=== PATIENT | female | born 1995 | race American Indian/Alaskan Native ===

== ENCOUNTER 2018-05-05 20:02 | Emergency (ER) | payer OTHER ==
[2018-05-05 20:19] VITALS: BP 115/72
[2018-05-05 20:49] LABS: Basophils # (Auto) 0.1 K/mm3 (0.0-0.1); Basophils % (Auto) 0.4 % (0.0-1.8); Eosinophils # (Auto) 0.2 K/mm3 (0.0-0.4); Hematocrit 35.6 % (30.3-42.9); Hemoglobin 12.5 gm/dl (10.1-14.3); Lymphocytes # (Auto) 3.1 K/mm3 (1.2-5.4); Lymphocytes % (Auto) 18.2 % (13.4-35.0); Mean Corpuscular HGB Conc 35 % (30-34); Mean Corpuscular Hemoglobin 30 pg (28-32); Mean Corpuscular Volume 85 fl (79-97); Monocytes # (Auto) 1.1 K/mm3 (0.0-0.8); Monocytes % (Auto) 6.3 % (0.0-7.3); Platelet Count 230 K/mm3 (140-440); Red Blood Count 4.19 M/mm3 (3.65-5.03); Red Cell Distribution Width 17.9 % (13.2-15.2)
[2018-05-05 20:52] LABS: Bacteria,Urine 1+ /HPF (Negative); Bilirubin,Urine NEG (Negative); Blood,Urine MOD (Negative); Color,Urine Amber (Yellow); Mucus,Urine FEW /HPF; Protein,Urine <15 mg/dL mg/dL (Negative)
[2018-05-05 20:58] LABS: Alanine Aminotransferase 7 units/L (7-56); Albumin 4.2 g/dL (3.9-5); BUN/Creatinine Ratio 10; Blood Urea Nitrogen 6 mg/dL (7-17); Calcium 9.5 mg/dL (8.4-10.2); Hemolysis Index 8; Lipase 18 units/L (13-60)
[2018-05-05] MEDS ORDERED: KEFLEX PO ONE (21:20)
[2018-05-05] MEDS ORDERED: ZOFRAN ODT PO ONE (21:21)
--- NOTE | 2018-05-05 21:24 | Emergency Department Report ---
HPI - General Chief Complaint: Abdominal Pain Time Seen by Provider: 05/05/18 21:16 - HPI HPI: 23-year-old female presents to the emergency department with a complaint of some upper abdominal pain, bilateral flank pain and some back pain for the past 2 days. She says "I think have a bladder infection." She has a little bit of burning with urination and starting this morning she had a few episodes of vomiting. She is still slightly nauseated but the vomiting has improved. She tried some [id number] pain medication for her symptoms with mild relief. She denies any fever, vaginal bleeding or discharge. She denies any past medical history. She sees Dr. Diane Rasheed at [facility]. No recent travel or sick contacts at home. ED Past Medical Hx - Past Medical History Previous Medical History?: No - Surgical History Past Surgical History?: No - Social History Smoking Status: Never Smoker Substance Use Type: None - Medications Home Medications: Home Medications Medication Instructions Recorded Confirmed Last Taken Type Sulfamethoxazole/Trimethoprim 1 each PO BID #14 tablet 05/05/18 Unknown Rx [Bactrim DS TAB] ED Review of Systems ROS: Stated complaint: N/V; ABD/BACK PAIN Other details as noted in HPI Comment: All other systems reviewed and negative Constitutional: denies: chills, fever Eyes: denies: eye pain, eye discharge, vision change ENT: denies: ear pain, throat pain Respiratory: denies: cough, shortness of breath, wheezing Cardiovascular: denies: chest pain, palpitations Gastrointestinal: abdominal pain, nausea, vomiting Genitourinary: dysuria Musculoskeletal: back pain. denies: arthralgia Skin: denies: rash, lesions Neurological: denies: headache, weakness, paresthesias Physical Exam - Physical Exam Vital Signs: Vital Signs 05/05/18 20:13 Temperature 99.2 F Pulse Rate 67 Respiratory 16 Rate Blood Pressure 115/72 O2 Sat by Pulse 100 Oximetry Physical Exam: GENERAL: The patient is well-developed well-nourished. HENT: Normocephalic. Atraumatic. Patient has moist mucous membranes. EYES: Extraocular motions are intact. NECK: Supple. Trachea is midline. CHEST/LUNGS: Clear to auscultation. There is no respiratory distress noted. HEART/CARDIOVASCULAR: Regular. There is no tachycardia. There is no murmur. ABDOMEN: Abdomen is soft. There is no reproducible tenderness to palpation of the abdomen. No guarding. Patient has normal bowel sounds. There is no abdominal distention. SKIN: Skin is warm and dry. NEURO: The patient is awake, alert, and oriented. The patient is cooperative. The patient has no focal neurologic deficits. The patient has normal speech. MUSCULOSKELETAL: There is no tenderness or deformity. There is no evidence of acute injury. ED Course Vital Signs 05/05/18 20:13 Temperature 99.2 F Pulse Rate 67 Respiratory 16 Rate Blood Pressure 115/72 O2 Sat by Pulse 100 Oximetry ED Medical Decision Making - Lab Data Result diagrams: 05/05/18 20:21 05/05/18 20:21 - Radiology Data Radiology results: report reviewed Bilateral renal ultrasound and upper abdominal ultrasounds do not show any acute processes. This includes no signs of hydronephrosis, cholelithiasis or cholecystitis. - Medical Decision Making Patient has a complaint of some abdominal pain, flank pain and back pain with some dysuria. Labs do show a leukocytosis and a mild urinary tract infection. Belly labs are unremarkable. She was given a dose of antibiotics here. She had an ultrasound of the upper abdomen to look into possible cholelithiasis, cholecystitis, pancreatitis, and she had an ultrasound of the kidneys to look for hydronephrosis or nephrolithiasis. Both ultrasound came back showing no acute process. Vital signs stable throughout her ED course including being afebrile. She definitely has a mild urinary tract infection with her other symptoms you could argue that she might have mild pyelonephritis. However she does not require admission and will be treated outpatient with antibiotics. She has been encouraged to follow up with her primary care physician the next few days and return to the emergency Department with any worsening of her symptoms or any acute distress. - Differential Diagnosis cystitis, pyelonephritis, cholelithiasis, cholecystitis Critical Care Time: No Critical care attestation.: If time is entered above; I have spent that time in minutes in the direct care of this critically ill patient, excluding procedure time. ED Disposition Clinical Impression: Pyelonephritis UTI (urinary tract infection) Qualifiers: Urinary tract infection type: acute cystitis Hematuria presence: with hematuria Qualified Code(s): N30.01 - Acute cystitis with hematuria Disposition: TO HOME OR SELFCARE Is pt being admited?: No Condition: Stable Instructions: Urinary Tract Infection in Women (ED), Acute Pyelonephritis (ED) Additional Instructions: Please follow-up with your primary care physician in the next few days. Return to the emergency Department with any worsening of your symptoms or any acute distress. Prescriptions: Sulfamethoxazole/Trimethoprim [Bactrim DS TAB] 1 each PO BID #14 tablet Referrals: PRIMARY CARE, [Primary Care Provider] - [facility] Time of Disposition: 23:32
--- NOTE | 2018-05-05 23:20 | Ultrasound Report ---
FINAL REPORT PROCEDURE: . US ABDOMEN LIMITED TECHNIQUE: Real-time sonography in multiple planes of the gallbladder fossa and CBD with imaging of the adjacent liver, pancreas, and right kidney was performed with image documentation. CPT 03944 HISTORY: upper abd pain COMPARISON: No prior studies are available for comparison. FINDINGS: Liver: Normal size and echotexture with no evidence of cystic or solid mass lesion. Gallbladder: Fluid filled. No gallstones, wall thickening, pericholecystic fluid, or sonographic Booth's sign . Intrahepatic bile ducts: Normal . Extrahepatic bile ducts: Normal. The common duct measures 0.2 cm. Pancreas: Normal as visualized with suboptimal depiction of the pancreatic tail. Right kidney: Normal echotexture. No focal renal mass, calculus, or hydronephrosis. 10.1 cm in length. Other: No free fluid. IMPRESSION: Normal Examination. No gallstones or biliary dilatation.
--- NOTE | 2018-05-05 23:21 | Ultrasound Report ---
FINAL REPORT PROCEDURE: US RENAL BILAT TECHNIQUE: Real-time sonography in multiple planes of the kidneys, ureters and urinary bladder was performed with image documentation. CPT 37302 HISTORY: flank and back pain with UTI COMPARISON: No prior studies are available for comparison. FINDINGS: RIGHT kidney: Normal echotexture. No focal renal mass, calculus, or hydronephrosis. Length: 10.1 cm. LEFT kidney: Normal echotexture. No focal renal mass, calculus, or hydronephrosis. Length: 10.1cm. Bladder: Normal. IMPRESSION: Normal Examination. No hydronephrosis.
== END 2018-05-05 23:54 | disposition home or self-care (01) ==
LOC: ED 20:02
DX: N12 Tubulo-interstitial nephritis, not specified as acute or chronic (principal); N30.01 Acute cystitis with hematuria
CPT/HCPCS: 36415; 76705; 76770; 80053; 81001; 83690; 84703; 85025; Q0162